=== PATIENT | male | born 1970 ===

== ENCOUNTER → 2024-03-23 | Outpatient (CLI) | payer BC ==
[2024-03-25 18:16] LABS: HSV 1 SUBTYPE BY PCR Not Detected; HSV 2 SUBTYPE BY PCR Not Detected; HSV SUBTYPE SOURCE Genital
== END | disposition home or self-care (01) ==
LOC: LAB SHORT 15:16 → LAB 15:16
PROVIDERS: Dermatology
DX: N47.6 Balanoposthitis (principal)
CPT/HCPCS: 87529